=== PATIENT | female | born 1975 | race Caucasian/White ===

== ENCOUNTER 2018-08-19 06:00 | Day surgery (SDC) | payer OTHER ==
[~2018-08-19 06:00] MED LIST: MICARDIS HCT 81 EAC1 PO
[2018-08-19] MEDS ORDERED: CODE1TAB37 PO (09:22)
[2018-08-19] MEDS ORDERED: DOXYCYCLINE HY100 MG PO (09:22)
== END 2018-08-19 11:15 | disposition home or self-care (01) ==
LOC: CIR.AMB 06:00
DX: N84.0 Polyp of corpus uteri (principal)

== ENCOUNTER 2022-02-11 07:45 | Inpatient (IN) | payer OTHER ==
[~2022-02-11] VITALS: Ht 160 cm; Wt 86.2 kg
[~2022-02-11 07:45] MED LIST changes: +CODE1TAB37 PO; +DOXYCYCLINE HY100 MG PO
[2022-02-11] MEDS ORDERED: MICARDIS HCT 81 EAC1 PO (10:18)
[2022-02-11] MEDS ORDERED: LEVOTHYROXINE25 MCG PO (10:18)
[2022-02-11] MEDS ORDERED: CRESTOR10 MG PO (10:19)
[2022-02-14] MEDS ORDERED: NAPR500T14 PO (08:47)
[2022-02-14] MEDS ORDERED: Tylenol #3 PO (08:47)
== END 2022-02-14 11:12 | disposition home or self-care (01) | DRG 743 ==
LOC: OB/GYN 02-13 05:45 → O/R 02-13 05:45 → SURH 02-13 07:45 → OB/GYN 02-13 13:34 → SURH 02-13 17:45 → OB/GYN 02-14 11:12
PROVIDERS: ADMIT Obstetrics & Gynecology; ATTEND Obstetrics & Gynecology
PROC: 0UT70ZZ Resection of Bilateral Fallopian Tubes, Open Approach (ICD-10-PCS; 2022-02-13)
PROC: 0UT20ZZ Resection of Bilateral Ovaries, Open Approach (ICD-10-PCS; 2022-02-13)
PROC: 0TJB8ZZ Inspection of Bladder, Via Natural or Artificial Opening Endoscopic (ICD-10-PCS; 2022-02-13)
PROC: 0UT90ZZ Resection of Uterus, Open Approach (ICD-10-PCS; principal; 2022-02-13 17:45)
DX: D25.1 Intramural leiomyoma of uterus (principal); D25.2 Subserosal leiomyoma of uterus; Z20.822 Contact with and (suspected) exposure to COVID-19; N72 Inflammatory disease of cervix uteri; G89.18 Other acute postprocedural pain